=== PATIENT | male | born 1960 | race African-American/Black ===

== ENCOUNTER 2017-06-20 10:09 | Emergency (ER) | payer MEDICARE, MEDICAID ==
[2017-06-20] MEDS ORDERED: Ibuprofen 800 MG TAB ONE (11:11)
--- NOTE | 2017-06-20 13:21 | RAD ---
4 VIEWS RIGHT KNEE: Date: 06/20/17 HISTORY: Right knee pain after a fall over a week ago. FINDINGS: There is no evidence of a fracture or dislocation. Superior patellar enthesophyte is present. No join t space narrowing is appreciated. IMPRESSION: No acute osseous abnormality of the right knee. POS: [facility]
--- NOTE | 2017-06-20 13:23 | RAD ---
3 VIEWS LUMBAR SPINE: Date: 06/20/17 HISTORY: Right knee and back pain after a fall over a week ago. FINDINGS: There are five non-rib bearing lumbar-type vertebral bodies. Scattered osteophytes are seen within th e lumbar spine. However, no fracture or subluxation is seen involving the lumbar spine. There is stra ightening of the normal lumbar curvature. IMPRESSION: Degenerative changes of the lumbar spine without evidence of an acute fracture visualized. If patient continues to have back pain, an MRI of the lumbar spine may be helpful for further evaluation. POS: [facility]
== END 2017-06-20 12:04 | disposition home or self-care (01) ==
LOC: ERS 10:09
DX: S33.5XXA Sprain of ligaments of lumbar spine, initial encounter (principal); S83.91XA Sprain of unspecified site of right knee, initial encounter; E78.5 Hyperlipidemia, unspecified; I10 Essential (primary) hypertension; Z79.899 Other long term (current) drug therapy; W10.9XXA Fall (on) (from) unspecified stairs and steps, initial encounter
CPT/HCPCS: 72100

== ENCOUNTER 2017-10-04 05:32 | Emergency (ER) | payer MEDICARE, MEDICAID | END 2017-10-04 06:30 | LOC: ERS 05:32 | DX: F14.10 Cocaine abuse, uncomplicated (principal); E78.5 Hyperlipidemia, unspecified; I10 Essential (primary) hypertension; F17.210 Nicotine dependence, cigarettes, uncomplicated; Z79.899 Other long term (current) drug therapy; Z71.6 Tobacco abuse counseling | CPT/HCPCS: 99406 ==

== ENCOUNTER 2018-03-15 08:23 | Outpatient (CLI) | payer MEDICARE, MEDICAID ==
--- NOTE | 2018-03-15 10:18 | ULT ---
HEPATIC ULTRASOUND WITH DOPPLER: (wooten scale, color flow, and spectral Doppler) HISTORY: Hepatitis C. FINDINGS: The liver demonstrates homogeneous echotexture without focal mass or intrahepatic ductal dilatation. No gallstones, gallbladder wall thickening, or pericholecystic fluid is seen. The spleen is normal measuring 8.3 cm in length. The pancreas has a normal appearance. The common duct measures 4 mm in diameter. No free fluid is seen in the right upper quadrant. Flow in the spectral waveforms in the hepatic, portal, and splenic vascular are normal. IMPRESSION: Unremarkable exam. No evidence of hepatic mass. POS: [facility]
== END 2018-03-15 08:24 | disposition home or self-care (01) ==
LOC: BICULT 08:23
PROVIDERS: ATTEND Internal Medicine
DX: K74.60 Unspecified cirrhosis of liver (principal); B18.2 Chronic viral hepatitis C
CPT/HCPCS: 76705

== ENCOUNTER 2024-06-01 17:54 | Emergency (ER) | payer MEDICAID, MEDICARE ==
[2024-06-01 19:06] LABS: ALT (SGPT) 17 U/L (Less than 45); AST (SGOT) 22 U/L (11-34); Albumin 3.9 g/dL (3.1-4.5); Alkaline Phosphatase 72 U/L (40-110); Anion Gap 12 mmol/L (10-20); BUN (Urea Nitrogen) 19 mg/dL (8.4-25.7); Bilirubin, Total 0.5 mg/dL (0.3-1.2); Calc. Creatinine Clearance 0 mL/min (70-130); Calcium 10.3 mg/dL (7.8-10.44); Carbon Dioxide 29 mmol/L (23-31); Chloride 97 mmol/L (98-107); Estimated GFR 48; Globulin 4.3 g/dL (2.4-3.5); Glucose 366 mg/dL (80-115); Lipase 53 U/L (8-78); Potassium 3.9 mmol/L (3.5-5.1); Protein, Total 8.2 g/dL (5.8-8.1); Sodium 134 mmol/L (136-145)
[2024-06-01 19:50] LABS: Bacteria/HPF None Seen HPF (None Seen); Bilirubin Negative (Negative); Blood, Urine Negative (Negative); CAUTI Indications for Culture Alt mental st,lethar; Clarity Clear (Clear); Glucose, Urine (Dipstick) Greater than 1000 mg/dL (Negative); Ketone, Urine Negative (Negative); Leukocyte Negative Leu/uL (Negative); Nitrite Negative (Negative); Protein, Urine (Dipstick) Negative (Neg-Trace); RBC/HPF None Seen HPF (0-3); Specific Gravity, Urine 1.033 (1.002-1.036); Squamous Epithelial None Seen HPF (0-3); Urobilinogen Normal mg/dL (Less than 2); WBC/HPF 0-3 HPF (0-3); pH, Urine 6.5 (5.0-9.0)
[2024-06-01 19:52] LABS: Urine Culture Reflex No No
[2024-06-01 20:51] LABS: #Basophils 0.06 10x3/uL (0.0-0.2); %Basophils 0.6 % (0.0-1.0); %Eosinophils 2.6 % (0.0-10.0); %Lymphocytes 41.4 % (21.0-51.0); %Monocytes 10.6 % (0.0-10.0); %Neutrophils 44.2 % (42.0-75.0); Hematocrit 44.1 % (42.0-52.0); Hemoglobin 16.6 g/dL (14.0-18.0); Mean Corpuscular HGB CONC 37.6 g/dL (32.0-36.0); Mean Corpuscular Hemoglobin 30.7 pg (27.0-31.0); Mean Corpuscular Volume 81.5 fL (78.0-98.0); Platelet Count 169 10x3/uL (130-400); RBC Distribution Width 12.6 % (11.5-14.5); Red Blood Cell (RBC) Count 5.41 mill/uL (4.70-6.10)
== END 2024-06-01 20:22 | disposition home or self-care (01) ==
LOC: ERS 17:54
DX: E11.65 Type 2 diabetes mellitus with hyperglycemia (principal); I10 Essential (primary) hypertension; F17.210 Nicotine dependence, cigarettes, uncomplicated
CPT/HCPCS: 36415; 80053; 81001; 82010; 83690; 85025; 93005; 96360

== ENCOUNTER 2024-06-09 09:06 | Outpatient (CLI) | payer BC | END 2024-06-09 09:07 | disposition home or self-care (01) | LOC: BICRAD 09:06 | PROVIDERS: ATTEND Family Medicine | DX: M79.89 Other specified soft tissue disorders (principal); M19.071 Primary osteoarthritis, right ankle and foot; M19.072 Primary osteoarthritis, left ankle and foot ==